=== PATIENT | female | born 1970 | race Caucasian/White ===

== ENCOUNTER 2019-11-11 02:13 | Emergency (ER) | payer BC ==
--- NOTE | 2019-11-11 02:48 | EDM.PDOC ---
ED HPI GENERAL MEDICAL PROBLEM - General Chief Complaint: Abdominal Pain Stated Complaint: ABD PAIN Time Seen by Provider: 11/11/19 02:48 Source of Information: Reports: Patient History Limitations: Reports: No Limitations - History of Present Illness INITIAL COMMENTS - FREE TEXT/NARRATIVE: pt started having midabdomanal pain after eating a taco salad. She had loose stools in the evening and in the middle of the nite she developed severe upper abdomanal pain. She now rating her pain at a 5-6. Onset: Other ( started yesterday. ) Duration: Hour(s): Location: Reports: Abdomen Associated Symptoms: Reports: Loss of Appetite, Nausea/Vomiting, Other (pt has been chilling. ) Abdominal Pain Score (Numeric/FACES): 6 - Related Data Allergies Allergy/AdvReac Type Severity Reaction Status Date / Time ibuprofen Allergy Arrhythmias Verified 11/11/19 02:25 Home Meds: Home Meds Aspirin [Adult Low Dose Aspirin EC] 81 mg PO DAILY 11/11/19 [History] DULoxetine [Cymbalta] 30 mg PO DAILY 11/11/19 [History] atenoloL [Atenolol] 50 mg PO DAILY 11/11/19 [History] metFORMIN [Glucophage] 500 mg PO DAILY 11/11/19 [History] Past Medical History HEENT History: Reports: Impaired Vision Cardiovascular History: Reports: Hypertension [employer] History: Reports: , Spontaneous Psychiatric History: Reports: Depression Endocrine/Metabolic History: Reports: Diabetes, Type II - Infectious Disease History Infectious Disease History: Reports: Chicken Pox - Past Surgical History HEENT Surgical History: Reports: Eye Surgery Social & Family History - Tobacco Use Smoking Status *Q: Current Every Day Smoker Years of Tobacco use: 35 Packs/Tins Daily: 1 - Recreational Drug Use Recreational Drug Use: Yes Drug Use in Last 12 Months: Yes Recreational Drug Type: Reports: Marijuana/Hashish Recreational Drug Use Frequency: Rarely ED ROS GENERAL - Review of Systems Review Of Systems: See Below Constitutional: Reports: Chills HEENT: Reports: No Symptoms Respiratory: Reports: No Symptoms Cardiovascular: Reports: No Symptoms Endocrine: Reports: No Symptoms GI/Abdominal: Reports: Abdominal Pain, Diarrhea, Nausea, Vomiting : Reports: No Symptoms Musculoskeletal: Reports: No Symptoms Skin: Reports: No Symptoms Neurological: Reports: No Symptoms Psychiatric: Reports: No Symptoms ED EXAM, GI/ABD - Physical Exam Exam: See Below Text/Narrative:: pt arrived with pain in the upper abdoman at a 5-6. Exam Limited By: No Limitations General Appearance: Alert, Anxious, Moderate Distress, Other (pupils equal and reactive. ) Ears: Normal TMs Nose: Normal Inspection Throat/Mouth: Normal Inspection Head: Atraumatic Neck: Normal Inspection Respiratory/Chest: No Respiratory Distress Cardiovascular: Regular Rate, Rhythm GI/Abdominal Exam: Tender, Other (pt is tender in the rt and mid abdoman. She does have slight guarding in the area. ) (Female) Exam: Deferred Rectal (Female) Exam: Deferred Back Exam: Normal Inspection Extremities: Normal Inspection Neurological: Alert, Oriented, Normal Cognition Psychiatric: Normal Affect Course - Vital Signs Last Recorded V/S: Last Vital Signs Temp 35.6 C L 11/11/19 02:32 Pulse 73 11/11/19 04:05 Resp 18 11/11/19 04:05 BP 144/73 H 11/11/19 04:05 Pulse Ox 97 11/11/19 04:05 - Orders/Labs/Meds Orders: Active Orders 24 hr Category Date Time Status Abdomen Ltd [US] Stat Exams 11/11/19 04:17 Ordered UA W/MICROSCOPIC [URIN] Urgent Lab 11/11/19 02:47 Ordered Sodium Chloride 0.9% [Normal Saline] 1,000 ml Med 11/11/19 03:00 Active IV ASDIRECTED Sodium Chloride 0.9% [Normal Saline] 85 ml Med 11/11/19 04:00 Active IV ASDIRECTED Sodium Chloride 0.9% [Saline Flush] Med 11/11/19 03:53 Active 10 ml FLUSH ONETIME PRN Medication Orders Sodium Chloride (Normal Saline) 1,000 mls @ 999 mls/hr IV ASDIRECTED JULIAN Last Admin: 11/11/19 03:14 Dose: 999 mls/hr Documented by: CALLY Sodium Chloride (Normal Saline) 85 mls @ 3.5 mls/sec IV ASDIRECTED JULIAN Last Admin: 11/11/19 04:24 Dose: 3.5 mls/sec Documented by: TAMMIE Sodium Chloride (Saline Flush) 10 ml FLUSH ONETIME PRN PRN Reason: per radiology protocol Last Admin: 11/11/19 04:19 Dose: 10 ml Documented by: TAMMIE Labs: Laboratory Tests 11/11/19 11/11/19 11/11/19 Range/Units 03:10 03:10 03:10 WBC 11.5 H (4.5-11.0) K/uL RBC 4.96 (3.30-5.50) M/uL Hgb 14.1 (12.0-15.0) g/dL Hct 43.8 (36.0-48.0) % MCV 88 (80-98) fL MCH 28 (27-31) pg MCHC 32 (32-36) % Plt Count 300 (150-400) K/uL Neut % (Auto) 81 H (36-66) % Lymph % (Auto) 13 L (24-44) % [place] % (Auto) 5 (2-6) % Eos % (Auto) 1 L (2-4) % Baso % (Auto) 0 (0-1) % Sodium 138 L (140-148) mmol/L Potassium 4.2 (3.6-5.2) mmol/L Chloride 101 (100-108) mmol/L Carbon Dioxide 27 (21-32) mmol/L Anion Gap 14.2 H (5.0-14.0) mmol/L BUN 14 (7-18) mg/dL Creatinine 0.8 (0.6-1.0) mg/dL Est Cr Clr Drug Dosing 88.64 mL/min Estimated GFR (MDRD) > 60 (>60) Glucose 177 H (74-106) mg/dL Calcium 9.2 (8.5-10.1) mg/dL Total Bilirubin 0.3 (0.2-1.0) mg/dL AST 14 L (15-37) U/L ALT 25 (12-78) U/L Alkaline Phosphatase 51 (46-116) U/L C-Reactive Protein 0.91 H (0.0-0.3) mg/dL Total Protein 6.6 (6.4-8.2) g/dL Albumin 3.5 (3.4-5.0) g/dL Globulin 3.1 (2.3-3.5) g/dL Albumin/Globulin Ratio 1.1 L (1.2-2.2) Amylase (25-115) U/L Lipase (73-393) U/L 11/11/19 11/11/19 Range/Units 03:10 03:10 WBC (4.5-11.0) K/uL RBC (3.30-5.50) M/uL Hgb (12.0-15.0) g/dL Hct (36.0-48.0) % MCV (80-98) fL MCH (27-31) pg MCHC (32-36) % Plt Count (150-400) K/uL Neut % (Auto) (36-66) % Lymph % (Auto) (24-44) % [place] % (Auto) (2-6) % Eos % (Auto) (2-4) % Baso % (Auto) (0-1) % Sodium (140-148) mmol/L Potassium (3.6-5.2) mmol/L Chloride (100-108) mmol/L Carbon Dioxide (21-32) mmol/L Anion Gap (5.0-14.0) mmol/L BUN (7-18) mg/dL Creatinine (0.6-1.0) mg/dL Est Cr Clr Drug Dosing mL/min Estimated GFR (MDRD) (>60) Glucose (74-106) mg/dL Calcium (8.5-10.1) mg/dL Total Bilirubin (0.2-1.0) mg/dL AST (15-37) U/L ALT (12-78) U/L Alkaline Phosphatase (46-116) U/L C-Reactive Protein (0.0-0.3) mg/dL Total Protein (6.4-8.2) g/dL Albumin (3.4-5.0) g/dL Globulin (2.3-3.5) g/dL Albumin/Globulin Ratio (1.2-2.2) Amylase 44 (25-115) U/L Lipase 209 (73-393) U/L Meds: Medications Generic Name Dose Route Start Last Admin Trade Name Freq PRN Reason Stop Dose Admin Sodium Chloride 1,000 mls @ 999 mls/hr 11/11/19 03:00 11/11/19 03:14 Normal Saline IV 999 mls/hr ASDIRECTED JULIAN Administration Sodium Chloride 85 mls @ 3.5 mls/sec 11/11/19 04:00 11/11/19 04:24 Normal Saline IV 3.5 mls/sec ASDIRECTED JULIAN Administration Sodium Chloride 10 ml 11/11/19 03:53 11/11/19 04:19 Saline Flush FLUSH 10 ml ONETIME PRN Administration per radiology protocol Discontinued Medications Generic Name Dose Route Start Last Admin Trade Name Miguel Ángel PRN Reason Stop Dose Admin Al Hydroxide/Mg Hydroxide 15 0 ml 11/11/19 04:47 ml/ Lidocaine HCl 15 ml PO 11/11/19 04:48 ONETIME ONE Iopamidol 150 ml 11/11/19 03:53 11/11/19 04:25 Isovue-300 (61%) IV 11/11/19 03:54 150 ml ONETIME ONE Administration Ondansetron HCl 4 mg 11/11/19 03:21 11/11/19 03:30 Zofran IVPUSH 11/11/19 03:22 4 mg ONETIME ONE Administration - Re-Assessments/Exams Free Text/Narrative Re-Assessment/Exam: 11/11/19 04:51 pt has some thickening of the antrum of the stomach on cat scan, She has stones in hr GB. A Us of the GB was done which did not show thickening or fluid. She is definitely tender in the upper abdoman. 11/11/19 04:52 She has normal lipase and amylase. She has normal liver enzymes. There is some concern that she could have a ulcer or GI irritation. Her wbc is only mildly elevated. Departure - Departure Time of Disposition: 04:59 Disposition: Home, Self-Care 01 Condition: Fair Clinical Impression: Gastrointestinal irritation, Gallstones - Discharge Information Referrals: PCP,None [Primary Care Provider] - Forms: ED Department Discharge Care Plan Goals: a copy of the US of the Gb should be put on disc. A copy of the cat scan report and lab work should be sent with her. Pt will see her provider at [place]. prilosec 20 mg po daily, rtc for gastroscope the first of the week.-- here. Sepsis Event Note (ED) - Evaluation Sepsis Screening Result: No Definite Risk - Focused Exam Vital Signs: Vital Signs Temp Pulse Resp BP Pulse Ox 11/11/19 04:05 73 18 144/73 H 97 11/11/19 02:32 35.6 C L 68 18 146/76 H 98 11/11/19 02:31 35.6 C L 68 18 146/76 H 98 - My Orders Last 24 Hours: My Active Orders 11/11/19 02:47 UA W/MICROSCOPIC [URIN] Urgent 11/11/19 03:00 Sodium Chloride 0.9% [Normal Saline] 1,000 ml IV ASDIRECTED 11/11/19 03:53 Sodium Chloride 0.9% [Saline Flush] 10 ml FLUSH ONETIME PRN 11/11/19 04:00 Sodium Chloride 0.9% [Normal Saline] 85 ml IV ASDIRECTED 11/11/19 04:17 Abdomen Ltd [US] Stat - Assessment/Plan Last 24 Hours: My Active Orders 11/11/19 02:47 UA W/MICROSCOPIC [URIN] Urgent 11/11/19 03:00 Sodium Chloride 0.9% [Normal Saline] 1,000 ml IV ASDIRECTED 11/11/19 03:53 Sodium Chloride 0.9% [Saline Flush] 10 ml FLUSH ONETIME PRN 11/11/19 04:00 Sodium Chloride 0.9% [Normal Saline] 85 ml IV ASDIRECTED 11/11/19 04:17 Abdomen Ltd [US] Stat
[2019-11-11] MEDS ORDERED: Sodium Chloride 0.9% 1,000 ML IV SCH (03:00)
[2019-11-11] MEDS ORDERED: Ondansetron 4 MG/2 ML SDV IVPUSH ONE (03:21)
[2019-11-11] MEDS ORDERED: Sodium Chloride 0.9% 10 ML Syringe FLUSH PRN (03:53)
[2019-11-11] MEDS ORDERED: Iopamidol 612 MG/ML 500 ML Multipack Bottle IV ONE (03:53)
--- NOTE | 2019-11-11 04:44 | CRLCT ---
INDICATION: Right upper abdominal pain TECHNIQUE: CT Abdomen and pelvis with i.v. contrast. Coronal and sagittal reformats were obtained. CONTRAST: 150 mL Isovue 300 COMPARISON: None FINDINGS: Lower chest: Unremarkable. Liver: Unremarkable. Spleen: Unremarkable. Pancreas: Unremarkable. Gallbladder: Several gallstones are present within the gallbladder neck. Kidney: There is a 2.3 cm cyst in the upper pole of the left kidney. Both kidneys show normal enhancement. Adrenal: Unremarkable. Bowel: There is a relatively gasless density near the ileocecal valve without any apparent obstruction of the terminal ileum. This is most likely due to small bowel contents incompletely mixing with cecal stool. Mild wall thickening of the gastric antrum is present. The appendix is normal in appearance and size. Vascular: Unremarkable. Lymph: Unremarkable. Peritoneum: Unremarkable. No pneumoperitoneum is seen. No significant ascites is noted. Pelvis: There is a 2.2 cm cyst or follicle present within the right ovary. Soft tissue: Unremarkable. Bone: Unremarkable for age. IMPRESSIONS: 1. Several gallstones are present within the gallbladder neck. 2. Mild wall thickening of the gastric antrum is present. This may be due to gastritis or peptic ulcer disease and confirmation with barium GI series or endoscopy may be helpful. Dictated by Catracho Aleman MD @ 11/11/2019 4:43:32 AM Please note that all CT scans at this facility use dose modulation, iterative reconstruction, and/or weight-based dosing when appropriate to reduce radiation dose to as low as reasonably achievable. Dictated by: Catracho Aleman MD @ 11/11/2019 04:43:34 (Electronically Signed)
[2019-11-11] MEDS ORDERED: Alum Hydrox/Mag Hydrox/Simeth 15 ML, Lidocaine 2% 15 ML PO ONE ×2 (04:47)
[2019-11-11] MEDS ORDERED: Pantoprazole 40 MG Vial IVPUSH ONE (04:59)
--- NOTE | 2019-11-11 05:09 | CRLUS ---
INDICATION: Right upper quadrant pain. TECHNIQUE: Ultrasound abdomen complete. Sonographic images of the entire abdomen were obtained using jeter-scale and color Doppler. COMPARISON: CT today FINDINGS: Liver: Moderate to severe fatty infiltration of liver is noted. Gallbladder: Multiple small echogenic, mobile gallstones are noted within the gallbladder. The gallbladder wall is normal in appearance. No pericholecystic fluid is present. No sonographic Wenham sign is present. Common bile duct: 3 mm. Pancreas: The visualized portions of the pancreatic head and body are normal in appearance. Spleen: Normal in size and appearance. Right Kidney: 12.4 cm. The right kidney is normal in appearance and echotexture. No hydronephrosis or ureterectasis is seen. Left Kidney: The left kidney is normal in appearance and echotexture. No hydronephrosis or ureterectasis is seen. Vascular: Proximal abdominal aorta and IVC are normal in caliber. The visualized portal vein is patent with normal anterograde flow. IMPRESSION: 1. Multiple small echogenic, mobile gallstones are noted within the gallbladder. Dictated by Catracho Aleman MD @ 11/11/2019 5:07:40 AM Dictated by: Catracho Aleman MD @ 11/11/2019 05:07:46 (Electronically Signed)
== END 2019-11-11 05:30 | disposition home or self-care (01) ==
LOC: JP.ED 02:13
DX: K80.80 Other cholelithiasis without obstruction (principal); K92.89 Other specified diseases of the digestive system; I10 Essential (primary) hypertension; F32.9 Major depressive disorder, single episode, unspecified; E11.9 Type 2 diabetes mellitus without complications; F17.210 Nicotine dependence, cigarettes, uncomplicated; Z88.6 Allergy status to analgesic agent; Z79.82 Long term (current) use of aspirin; Z79.899 Other long term (current) drug therapy
CPT/HCPCS: 36415; 74177; 76705; 80053; 81001; 82150; 83690; 85025; 86140; 96361; 96374; 96375; 99284; A9270; C9113; J2405; J7030; J7050; Q9967

== ENCOUNTER 2024-07-17 12:41 | Emergency (ER) | payer BC, OTHER ==
[2024-07-17 16:01] LABS: BASOPHILS ABSOLUTE AUTO 0.07 K/uL (0.00-0.10); BASOPHILS PERCENT AUTO 0.5 % (0.1-1.3); EOSINOPHILS PERCENT AUTO 1.5 % (0.0-5.4); HEMATOCRIT 42.3 % (34.3-46.0); HEMOGLOBIN 14.3 g/dL (11.2-15.5); IMMATURE GRAN PERCENT AUTO 0.2 % (0.0-0.7); LYMPHOCYTES ABSOLUTE AUTO 3.19 K/uL (0.8-3.3); LYMPHOCYTES PERCENT AUTO 24.2 % (11.4-47.7); MEAN CORPUSCULAR HEMOGLOBIN 30.8 pg (31.6-35.5); MEAN CORPUSCULAR HGB CONC 33.8 g/dL (31.6-35.5); MEAN CORPUSCULAR VOLUME 91.2 fL (81.4-99.0); MONOCYTES ABSOLUTE AUTO 0.91 K/uL (0.20-0.90); MONOCYTES PERCENT AUTO 6.9 % (3.3-12.6); NEUTROPHILS PERCENT AUTO 66.7 % (40.0-78.1); PLATELET COUNT,PLT 306 K/uL (130-375); RED BLOOD CELL COUNT 4.64 M/uL (3.77-5.24); WHITE BLOOD CELL COUNT,WBC 13.2 K/uL (3.2-11.0)
[2024-07-17 16:02] LABS: IMMATURE GRAN ABSOLUTE AUTO 0.02 K/uL (0.00-0.23)
[2024-07-17 16:25] LABS: A/G RATIO 0.8 (1.2-2.2); ALANINE AMINOTRANSFERASE,ALT 30 U/L (12-78); ALBUMIN 3.3 g/dL (3.4-5.0); ALKALINE PHOSPHATASE 69 U/L (46-116); ANION GAP 12.6 mmol/L (5.0-14.0); ASPARTATE AMNIOTRANSFERASE,AST 8 U/L (15-37); BILIRUBIN TOTAL 0.6 mg/dL (0.2-1.0); BLOOD UREA NITROGEN,BUN 9 mg/dL (7-18); C-REACTIVE PROTEIN 4.84 mg/dL (<0.50); CARBON DIOXIDE,CO2 24 mmol/L (21-32); CHLORIDE,CL 103 mmol/L (100-108); CREATININE 0.8 mg/dL (0.6-1.0); EST CRCL DRUG DOSING (CG) 86.94 mL/min; ESTIMATED GFR 89 mL/min (>60); GLUCOSE RANDOM 132 mg/dL (74-106); POTASSIUM,K 3.8 mmol/L (3.6-5.2); PROTEIN TOTAL,TP 7.4 g/dL (6.4-8.2); SODIUM,NA 140 mmol/L (140-148)
[2024-07-17 16:26] LABS: TROPONIN I HIGH SENSITIVITY < 4.0 pg/mL (<=60.3)
[2024-07-17 16:28] LABS: LACTIC ACID 2.1 mmol/L (0.4-2.0)
[2024-07-17] MEDS: Iopamidol 612 MG/ML 100 ML Bottle IV SCH (16:56)
[2024-07-17] MEDS: Sodium Chloride 0.9% 80 ML IV SCH (16:56)
[2024-07-17] MEDS: Sodium Chloride 0.9% 10 ML Syringe FLUSH PRN (16:56)
[2024-07-17] MEDS: fentaNYL 50 MCG/ML SDV IVPUSH ONE (17:01)
[2024-07-17] MEDS: Sodium Chloride 0.9% 1,000 ML IV ONE ×2 (17:02→18:23)
[2024-07-17] MEDS: Sodium Chloride 0.9% 100 ML IV SCH (18:13)
[2024-07-17] MEDS: Iopamidol 755 Mg/ML 100 ML Bottle IV SCH (18:13)
== END 2024-07-17 19:35 | disposition home or self-care (01) ==
LOC: JP.ED 12:41
DX: R10.13 Epigastric pain (principal); R10.11 Right upper quadrant pain; R91.1 Solitary pulmonary nodule; I10 Essential (primary) hypertension; E11.9 Type 2 diabetes mellitus without complications; F17.210 Nicotine dependence, cigarettes, uncomplicated; Z88.6 Allergy status to analgesic agent; Z79.82 Long term (current) use of aspirin; Z79.84 Long term (current) use of oral hypoglycemic drugs; Z79.899 Other long term (current) drug therapy; Z79.85 Long-term (current) use of injectable non-insulin antidiabetic drugs
CPT/HCPCS: 36415; 71275; 74177; 80053; 83605; 83690; 84484; 85025; 86140; 93005; 96361; 96374; 99284; J3010; J7030; Q9967